=== PATIENT | female | born 1960 | race Caucasian/White ===

== ENCOUNTER 2018-07-06 15:56 | Emergency (ER) | payer OTHER ==
--- NOTE | 2018-07-06 16:39 | RAD ---
FOUR VIEWS OF THE LEFT KNEE: 07/06/18 INDICATION: History of fall. FINDINGS: There is a mildly distracted inferiorly pole left patellar fracture. There is overlying soft tissue s welling near the fracture site. No additional acute osseous abnormality is evident. IMPRESSION: Mildly distracted inferior patellar fracture. POS: JANYA
[2018-07-06] MEDS ORDERED: HYDROcodone/Acetaminophen 5/325 mg Tablet ONE (16:58)
== END 2018-07-06 17:44 | disposition home or self-care (01) ==
LOC: ERS 15:56
DX: S82.002A Unspecified fracture of left patella, initial encounter for closed fracture (principal); W19.XXXA Unspecified fall, initial encounter

== ENCOUNTER 2019-04-08 07:24 | Outpatient (CLI) | payer OTHER ==
--- NOTE | 2019-04-08 08:36 | RAD ---
XR Knee Lt 2 View History: Pain Comparison: None Findings: Exam was not performed as there is no indication for arthrogram of the knee and patient hill l proceed to MRI without intra-articular contrast. Impression: Patient to proceed to MRI without intra-articular contrast.
--- NOTE | 2019-04-08 09:38 | MRI ---
MR OF THE LEFT KNEE WITHOUT CONTRAST INDICATION: Left knee pain TECHNIQUE: Axial and coronal PD fat sat, sagittal T2 fat sat, sagittal PD turbo spin echo and T1 johnathan nal images were obtained of the left knee. COMPARISON: Left knee radiograph dated April 08, 2019 FINDINGS: Joint effusion: There is a mild-sized joint effusion Semimembranosus-medial gastrocnemius popliteal cyst: There is a [id number]-gc-ybaakund sized Miller's cyst Ligaments: The ACL, PCL, MCL and LCLC are intact. Extensor mechanism: There is postsurgical change consistent with patellar tendon repair with suture a nchors seen within the anterior to mid patella. Menisci: There is a horizontally oriented oblique tear involving the posterior body, posterior juncti on and posterior horn of the medial meniscus. Lateral meniscus is intact. Articular cartilage: There is moderate diffuse thinning involving the medial patellar facet with a ne ar full-thickness articular cartilage fissure seen on image 70 series approximately 2 mm in its greatest thickness. Articular cartilage of the femoral tibial compartments appears relatively well-ma intained. Osseous structures: Normal marrow signal. Popliteus and IT band: Normal. IMPRESSION: 1. Medial meniscal tear. 2. Moderate chondrosis of the patellofemoral compartment. 3. Postoperative right knee
== END 2019-04-08 07:25 | disposition home or self-care (01) ==
LOC: RAD 07:24
DX: S83.242A Other tear of medial meniscus, current injury, left knee, initial encounter (principal); S89.92XA Unspecified injury of left lower leg, initial encounter; M25.562 Pain in left knee; M22.2X2 Patellofemoral disorders, left knee; Z98.890 Other specified postprocedural states